=== PATIENT | female | born 1990 | race Two or more races ===

== ENCOUNTER 2016-08-20 15:14 | Emergency (ER) | payer MEDICAID ==
--- NOTE | 2016-08-20 15:26 | ER Document Report ---
ED Medical Screen (RME) - General Stated Complaint: BACK AND ABDOMINAL PAIN Time seen by provider: 15:23 Mode of Arrival: Ambulatory Information source: Patient Notes: 26 yo female presents to ed for left flank pain since Wednesday with nausea no vomiting. TRAVEL OUTSIDE OF THE [place] IN LAST 30 DAYS: No - HPI Onset: Other - Wednesday Onset/Duration: Intermittent Quality of pain: Sharp Pain Level: 3 Associated Symptoms: Abdominal pain - left flank pian, Nausea. denies: Vomiting Exacerbated by: Standing Similar symptoms previously: Yes Recently seen / treated by doctor: No - Related Data Smoking: Cigarettes - 2 cig a day Frequency of alcohol use: None Drug Abuse: None Allergies/Adverse Reactions: aspirin Allergy (Verified 05/21/16 14:11) Past Medical History - Past Medical History Cardiac Medical History: Reports: Hx Hypertension Psychiatric Medical History: Reports: Hx Attention Deficit Hyperactivity Disorder, Hx Depression Past Surgical History: Reports: Hx Section, Hx Tubal Ligation Physical Exam - Vital signs Vitals: Temp Pulse Resp BP Pulse Ox 97.8 F 86 20 143/89 H 100 08/20/16 15:19 08/20/16 15:19 08/20/16 15:19 08/20/16 15:19 08/20/16 15:19 Course - Vital Signs Vital signs: Temp Pulse Resp BP Pulse Ox 97.8 F 86 20 143/89 H 100 08/20/16 15:19 08/20/16 15:19 08/20/16 15:19 08/20/16 15:19 08/20/16 15:19
[2016-08-20] MEDS ORDERED: ONDANSETRON 4 MG TAB.RAPDIS ONE (15:29)
[2016-08-20] MEDS ORDERED: ONDANSETRON 4 MG TAB.RAPDIS PO ONE (15:34)
[2016-08-20 16:00] LABS: ABSOLUTE BASOPHILS # (AUTO) 0.1 10^3/uL (0.0-0.2); ABSOLUTE EOSINOPHILS # (AUTO) 0.5 10^3/uL (0.0-0.6); ABSOLUTE MONOCYTES (AUTO) 0.5 10^3/uL (0.1-1.4); ABSOLUTE NEUT (AUTO) 5.6 10^3/uL (1.7-8.2); BASOPHILS % (AUTO) 0.5 % (0-2); EOSINOPHILS % (AUTO) 4.8 % (0-6); HEMATOCRIT 33.5 % (36.0-47.0); HEMOGLOBIN 11.2 g/dL (12.0-15.5); HGB HCT DIFFERENCE 0.1; LYMPHOCYTES % (AUTO) 30.5 % (13-45); MEAN CORPUSCULAR HEMOGLOBIN 24.5 pg (27.0-33.4); MEAN CORPUSCULAR HGB CONC 33.4 g/dL (32.0-36.0); MEAN CORPUSCULAR VOLUME 73 fl (80-97); MONOCYTES % (AUTO) 5.6 % (3-13); RED BLOOD COUNT 4.58 10^6/uL (3.72-5.28); RED CELL DISTRIBUTION WIDTH 16.5 % (11.5-14.0); SEGMENTED NEUTROPHILS % (AUTO) 58.6 % (42-78); WHITE BLOOD COUNT 9.7 10^3/uL (4.0-10.5)
[2016-08-20 16:05] LABS: ALANINE AMINOTRANSFERASE 52 U/L (9-52); ALBUMIN 3.7 g/dL (3.5-5.0); ALKALINE PHOSPHATASE 69 U/L (38-126); ANION GAP 10 (5-19); ASPARTATE AMINO TRANSFERASE 32 U/L (14-36); BILIRUBIN,TOTAL 0.4 mg/dL (0.2-1.3); BLOOD UREA NITROGEN 13 mg/dL (7-20); CALCIUM 9.1 mg/dL (8.4-10.2); CARBON DIOXIDE 29 mmol/L (22-30); CHLORIDE 103 mmol/L (98-107); CREATININE RESULT 0.72 mg/dL (0.52-1.25); GLUCOSE 93 mg/dL (75-110); POTASSIUM 4.4 mmol/L (3.6-5.0); SODIUM 141.5 mmol/L (137-145); TOTAL PROTEIN 6.7 g/dL (6.3-8.2)
[2016-08-20 16:15] LABS: APPEARANCE,URINE SLIGHTLY-CLOUDY; BILIRUBIN,URINE NEGATIVE (NEGATIVE); GLUCOSE, URINE NEGATIVE (NEGATIVE); KETONES,URINE NEGATIVE (NEGATIVE); LEUKOCYTE ESTERASE,URINE NEGATIVE (NEGATIVE); NITRITE,URINE NEGATIVE (NEGATIVE); PROTEIN,URINE NEGATIVE (NEGATIVE); URINE SPECIFIC GRAVITY 1.021; UROBILINOGEN,URINE NEGATIVE mg/dL (<2.0)
[2016-08-20] MEDS ORDERED: OXYCODONE-ACETAMINOPHEN 5-325 MG TABLET PO ONE (16:43)
--- NOTE | 2016-08-20 16:44 | ER Document Report ---
ED GI/ - General Chief Complaint: Abdominal Pain Stated Complaint: BACK AND ABDOMINAL PAIN Mode of Arrival: Ambulatory Information source: Patient Notes: Patient reports left-sided abdominal pain that wraps around to the left flank area off and on for the past 4 days. Patient reports some nausea. Patient denies any vomiting or diarrhea. Patient denies any urinary symptoms. Patient reports last bowel movement may have been today but she is uncertain. Eyes any aggravating or alleviating factors. Patient denies any fever. TRAVEL OUTSIDE OF THE [place] IN LAST 30 DAYS: No - HPI Patient complains to provider of: Abdominal pain, Flank pain. No: Dysuria, Pelvic pain, Onset: Other - 4 days Timing/Duration: Waxing and waning Quality of pain: Achy Pain Level: 3 Location: Left flank, Other - Left lateral side Adult Front & Back Diagram: 1 - Left middle quadrant tenderness Vaginal bleeding (Compared to normal period): None - Related Data Allergies/Adverse Reactions: aspirin Allergy (Verified 05/21/16 14:11) Past Medical History - General Information source: Patient Last Menstrual Period: 08/04/2016 - Social History Smoking Status: Current Every Day Smoker Frequency of alcohol use: None Drug Abuse: None Occupation: none Lives with: Family Family History: Reviewed & Not Pertinent Patient has suicidal ideation: No Patient has homicidal ideation: No - Past Medical History Cardiac Medical History: Reports: Hx Hypertension Psychiatric Medical History: Reports: Hx Attention Deficit Hyperactivity Disorder, Hx Depression Past Surgical History: Reports: Hx Section, Hx Tubal Ligation Review of Systems - Review of Systems Constitutional: No symptoms reported. denies: Fever, Recent illness EENT: No symptoms reported Cardiovascular: No symptoms reported. denies: Chest pain Respiratory: No symptoms reported. denies: Cough, Short of breath Gastrointestinal: Abdominal pain. denies: Diarrhea, Nausea, Vomiting Genitourinary: Flank pain. denies: Dysuria Female Genitourinary: No symptoms reported Musculoskeletal: Back pain - Left-sided Skin: No symptoms reported Hematologic/Lymphatic: No symptoms reported Neurological/Psychological: No symptoms reported Physical Exam - Vital signs Vitals: Temp Pulse Resp BP Pulse Ox 97.8 F 86 20 143/89 H 100 08/20/16 15:19 08/20/16 15:19 08/20/16 15:19 08/20/16 15:19 08/20/16 15:19 - General General appearance: Appears well, Alert In distress: None Notes: PHYSICAL EXAMINATION: GENERAL: Morbidly obese, Well-appearing and in no acute distress. HEAD: Atraumatic, normocephalic. EYES: sclera anicteric, conjunctiva are normal. ENT: nares patent. Moist mucous membranes. NECK: Normal range of motion, supple without lymphadenopathy LUNGS: CTAB and equal. No wheezes rales or rhonchi. HEART: Regular rate and rhythm without murmurs ABDOMEN: Soft, mild tenderness to left lateral abdominal area, normal bowel sounds, no guarding. EXTREMITIES: Normal range of motion, no pitting edema. No cyanosis. BACK: No midline tenderness, no step-off or deformity. No CVA tenderness NEUROLOGICAL: Cranial nerves grossly intact. Normal speech. Normal gait. PSYCH: Normal mood, normal affect. SKIN: Warm, Dry, normal turgor, no rashes or lesions noted Course - Re-evaluation Re-evalutation: 08/20/16 18:08 Patient's abdomen soft, nontender this time. Patient denies any nausea. Discussed worsening signs or symptoms that patient should return immediately for. Patient verbalized understanding and agrees with plan of care. Patient presents with abdominal pain without signs of peritonitis or other life- threatening or serious etiology. Patient appears stable for discharge and has been instructed to return immediately if the symptoms worsen in any way, or in 8 -12 hours if not improved for reevaluation. The patient has been instructed to return if the symptoms worsen or change in any way. - Vital Signs Vital signs: Temp Pulse Resp BP Pulse Ox 97.8 F 81 20 130/84 H 99 08/20/16 18:27 08/20/16 18:27 08/20/16 18:27 08/20/16 18:27 08/20/16 18:27 - Laboratory Result Diagrams: 08/20/16 15:30 08/20/16 15:30 Laboratory results interpreted by me: 08/20/16 08/20/16 15:30 15:30 Hgb 11.2 L Hct 33.5 L MCV 73 L MCH 24.5 L RDW 16.5 H Urine Ascorbic Acid 20 H 08/20/16 18:07 Labs- Entire Visit 08/20/16 08/20/16 08/20/16 15:30 15:30 15:30 WBC 9.7 RBC 4.58 Hgb 11.2 L Hct 33.5 L MCV 73 L MCH 24.5 L MCHC 33.4 RDW 16.5 H Plt Count 380 Seg Neutrophils % 58.6 Lymphocytes % 30.5 Monocytes % 5.6 Eosinophils % 4.8 Basophils % 0.5 Absolute Neutrophils 5.6 Absolute Lymphocytes 3.0 Absolute Monocytes 0.5 Absolute Eosinophils 0.5 Absolute Basophils 0.1 Sodium 141.5 Potassium 4.4 Chloride 103 Carbon Dioxide 29 Anion Gap 10 BUN 13 Creatinine 0.72 Est GFR ( Amer) > 60 Est GFR (Non-Af Amer) > 60 Glucose 93 Calcium 9.1 Total Bilirubin 0.4 Direct Bilirubin 0.0 AST 32 ALT 52 Alkaline Phosphatase 69 Total Protein 6.7 Albumin 3.7 Serum HCG, Qual NEGATIVE Urine Color Urine Appearance Urine pH Ur Specific [place] Urine Protein Urine Glucose (UA) Urine Ketones Urine Blood Urine Nitrite Urine Bilirubin Urine Urobilinogen Ur Leukocyte Esterase Urine WBC (Auto) Urine RBC (Auto) Squamous Epi Cells Auto Urine Mucus (Auto) Urine Ascorbic Acid 08/20/16 15:30 WBC RBC Hgb Hct MCV MCH MCHC RDW Plt Count Seg Neutrophils % Lymphocytes % Monocytes % Eosinophils % Basophils % Absolute Neutrophils Absolute Lymphocytes Absolute Monocytes Absolute Eosinophils Absolute Basophils Sodium Potassium Chloride Carbon Dioxide Anion Gap BUN Creatinine Est GFR ( Amer) Est GFR (Non-Af Amer) Glucose Calcium Total Bilirubin Direct Bilirubin AST ALT Alkaline Phosphatase Total Protein Albumin Serum HCG, Qual Urine Color YELLOW Urine Appearance SLIGHTLY-CLOUDY Urine pH 7.0 Ur Specific [place] 1.021 Urine Protein NEGATIVE Urine Glucose (UA) NEGATIVE Urine Ketones NEGATIVE Urine Blood NEGATIVE Urine Nitrite NEGATIVE Urine Bilirubin NEGATIVE Urine Urobilinogen NEGATIVE Ur Leukocyte Esterase NEGATIVE Urine WBC (Auto) 5 Urine RBC (Auto) 1 Squamous Epi Cells Auto 18 Urine Mucus (Auto) RARE Urine Ascorbic Acid 20 H 08/20/16 18:08 - Diagnostic Test Radiology reviewed: Image reviewed, Reports reviewed Discharge - Discharge Clinical Impression: Side pain Abdominal pain Qualifiers: Abdominal location: unspecified location Qualified Code(s): R10.9 - Unspecified abdominal pain Condition: Stable Disposition: HOME, SELF-CARE Instructions: Abdominal Pain ([facility]), Constipation ([facility]), Flank Pain ([facility]) Additional Instructions: Return immediately for any new or worsening symptoms Followup with your primary care provider, call tomorrow to make a followup appointment Return in 12 hours for repeat examination if your symptoms are not any better, sooner for any new or worsening symptoms Stay well hydrated Referrals: [facility] [Provider Group] - Follow up as needed [facility] [Provider Group] - Follow up as needed
[2016-08-20] MEDS ORDERED: MAGNESIUM CITRATE 296 ML BOTTLE PO ONE (18:07)
[2016-08-20 18:28] VITALS: BP 130/84
== END 2016-08-20 18:28 | disposition home or self-care (01) ==
LOC: ER 15:14
DX: R10.9 Unspecified abdominal pain (principal); M54.9 Dorsalgia, unspecified
CPT/HCPCS: 99284; 36415; 84703; 85025; 80053; 81001; 74022; J3490; S0119

== ENCOUNTER 2016-10-13 09:46 | Emergency (ER) | payer MEDICAID ==
[2016-10-13 12:54] LABS: APPEARANCE,URINE CLEAR; BILIRUBIN,URINE NEGATIVE (NEGATIVE); GLUCOSE, URINE NEGATIVE (NEGATIVE); KETONES,URINE NEGATIVE (NEGATIVE); LEUKOCYTE ESTERASE,URINE NEGATIVE (NEGATIVE); NITRITE,URINE NEGATIVE (NEGATIVE); PROTEIN,URINE NEGATIVE (NEGATIVE); URINE SPECIFIC GRAVITY 1.009; UROBILINOGEN,URINE NEGATIVE mg/dL (<2.0)
--- NOTE | 2016-10-13 13:14 | ER Document Report ---
ED GI/ - General Chief Complaint: Pelvic Pain Stated Complaint: EYE PAIN Notes: Patient says that she awakened Wednesday with red right thigh. Does not have any recollection of injury or trauma to the eye, rubbing the eye real vigorously, etc. It has been uncomfortable, but has not been painful and has not drained, bled, or had any other symptoms. Her vision is normal in both eyes. Patient also says that she's having pelvic pain for about 2 months. The pain is intermittent and in the mid lower pelvic region. She's not had any nausea or vomiting or diarrhea. Has had some urinary frequency but no other UTI symptoms. Was seen for this condition by a local [employer] office and had tests that came back positive for chlamydia and the patient was treated with an antibiotic. Her symptoms have not resolved and she is still having this pelvic pain and wishes to be checked out further today. Denies fever. She has an appointment to see the [employer] doctor again in 2 weeks. Patient has had a tubal ligation about 3 years ago. LMP 2/6. TRAVEL OUTSIDE OF THE [place] IN LAST 30 DAYS: No - Related Data Allergies/Adverse Reactions: aspirin Allergy (Verified 10/13/16 09:52) Past Medical History - Social History Smoking Status: Current Every Day Smoker Cigarette use (# per day): Yes Chew tobacco use (# tins/day): No Frequency of alcohol use: None Drug Abuse: None Family History: Reviewed & Not Pertinent Patient has suicidal ideation: No Patient has homicidal ideation: No - Past Medical History Cardiac Medical History: Reports: Hx Hypertension Renal/ Medical History: Denies: Hx Peritoneal Dialysis Psychiatric Medical History: Reports: Hx Attention Deficit Hyperactivity Disorder, Hx Depression Past Surgical History: Reports: Hx Section, Hx Tubal Ligation Review of Systems - Review of Systems Notes: REVIEW OF SYSTEMS: CONSTITUTIONAL : Denies fever. EENT: Denies eye, ear, nose or mouth or throat pain or other symptoms. CARDIOVASCULAR: Denies chest pain. RESPIRATORY: Denies cough, chest congestion, or shortness of breath. GASTROINTESTINAL: Denies abdominal pain or nausea, vomiting, or diarrhea. GENITOURINARY: Denies difficulty or painful urinating, urinary frequency, blood in urine. See history of present illness regarding her suprapubic/pelvic pain. MUSCULOSKELETAL: Denies back or neck pain. Denies joint pain or swelling. SKIN: Denies rash or skin lesions. ALL OTHER SYSTEMS REVIEWED AND NEGATIVE. Physical Exam - Vital signs Vitals: Temp Pulse Resp BP Pulse Ox 98.2 F 77 16 151/88 H 98 10/13/16 09:52 10/13/16 09:52 10/13/16 09:52 10/13/16 09:52 10/13/16 09:52 Interpretation: Normal, Hypertensive - Mild - Notes Notes: PHYSICAL EXAMINATION: GENERAL: Well-appearing, in no acute distress. 156 kg HEAD: Atraumatic, normocephalic. EYES: Pupils equal round and reactive to light, extraocular movements intact. Right eye shows what appears to me to be some subconjunctival hemorrhage of the inferior, medial aspect of the right eye conjunctiva NECK: Normal range of motion, supple. LUNGS: Breath sounds clear and equal bilaterally. HEART: Regular rate and rhythm without murmurs. ABDOMEN: Soft, nontender. No guarding or rebound. BACK: No tenderness throughout entire back. EXTREMITIES: Normal range of motion without pain. SKIN: Warm, dry, no rashes. - Genitourinary External exam: Normal Speculum exam: Normal, Cervix closed. No: Vaginal discharge Vaginal bleeding: None Bimanuel exam: Normal, Other - Mild tenderness in the midline, but no masses and no acute tenderness anywhere.. No: Adnexal mass, Adnexal tenderness, Uterus enlarged Course - Vital Signs Vital signs: Temp Pulse Resp BP Pulse Ox 98.2 F 77 16 151/88 H 98 10/13/16 09:52 10/13/16 09:52 10/13/16 09:52 10/13/16 09:52 10/13/16 09:52 Discharge - Discharge Clinical Impression: Subconjunctival hemorrhage of right eye, Chronic female pelvic pain Condition: Stable Disposition: HOME, SELF-CARE Additional Instructions: Subconjunctival Hemorrhage You've had an episode of bleeding between the sclera (white of the eye) and the membrane which covers it. While ugly, this bleeding is not dangerous in any way. Your eye has been examined to ensure that no internal hemorrhage is present. While subconjunctival hemorrhage can be caused by a minor injury, it is usually due to coughing, sneezing, straining, or rubbing the eye. There is no specific treatment. Expect the red area to spread considerably. Avoid rubbing the eye. It may take two or three weeks for the blood to clear. If you have any pain, discharge from the eye, or problems with your vision , call the doctor or return immediately for re-evaluation. PELVIC PAIN: There are many causes of pain in the pelvic area. The cause could be the tubes, ovaries, uterus, intestines, appendix, pelvic muscles and connective tissue, or the urinary tract. The cause of your pelvic pain is not clear. However, it seems safe to treat you outside the hospital. If the pain sounds like a temporary problem, we sometimes wait to see if it goes away. Other patients may need additional tests, such as pelvic ultrasound or cultures. Conditions may change. Call us or come back for reexamination if any problems occur, such as: (1) Pain that becomes more severe, steady, or becomes concentrated in one specific area. Also, pain that is more severe with movement or coughing. (2) Vomiting that persists or becomes more frequent. (3) Blood in the vomitus, urine, or bowel movements. Blood in the stool may have a tarry or black appearance. (4) Shaking chills or fever greater than 100 degrees. (5) The abdomen becomes more distended or swollen. (6) Bowel movements cease. (7) Heavy vaginal bleeding. NORMAL EXAM AND WORKUP: At this time, your examination and workup show no significant abnormality. No significant abnormal physical findings were noted. All laboratory, EKG, and imaging (x-ray, CT scans, ultrasound) studies that were ordered show no significant abnormality. Although your examination and all studies that were ordered showed no significant abnormal finding, there are no examinations and no studies that are 100% accurate. There is always the possibility that some abnormality could exist and not be detected with physical examination or within the limits and capabilities of laboratory and other studies. You should return or follow up as you were instructed on your visit today for further evaluation if your symptoms do not resolve. All of your tests of the pelvic area were normal/negative. We tested for trichomonas, yeast, chlamydia, and gonorrhea and all of those tests are normal. Ibuprofen Ibuprofen is an excellent, safe drug for pain control. In addition, it has potent antiinflammatory effects which are beneficial, especially in the treatment of injuries, arthritis, or tendonitis. It's best to take ibuprofen with food. Persons with ulcer disease or allergy to aspirin should notify their physician of this before taking ibuprofen. Take the medication exactly as prescribed. Don't take additional doses unless instructed to do so by your doctor. If you develop wheezing, shortness of breath, hives, faintness, stomach pain, vomiting, or dark black stools, return for re-evaluation at once. FOLLOW-UP CARE: If you have been referred to a physician for follow-up care, call the physician s office for an appointment as you were instructed or within the next two days. If you experience worsening or a significant change in your symptoms, notify the physician immediately or return to the Emergency Department at any time for re-evaluation. Keep your appointment to follow-up with your local [employer] doctor in 2 weeks, as scheduled.
[2016-10-13 13:31] LABS: CHLAM PCR NOT DETECTED (NOT DETECT)
[2016-10-13 14:07] VITALS: BP 152/88
== END 2016-10-13 14:06 | disposition home or self-care (01) ==
LOC: ER 09:46
DX: R10.2 Pelvic and perineal pain (principal); G89.29 Other chronic pain; H11.31 Conjunctival hemorrhage, right eye; R35.0 Frequency of micturition; F17.210 Nicotine dependence, cigarettes, uncomplicated; Z98.51 Tubal ligation status; Z88.6 Allergy status to analgesic agent; I10 Essential (primary) hypertension
CPT/HCPCS: 81001; 87210; 87491; 87591; 99284

== ENCOUNTER 2018-01-09 04:36 | Emergency (ER) | payer MEDICAID ==
[2018-01-09 06:00] LABS: APPEARANCE,URINE CLEAR; BILIRUBIN,URINE NEGATIVE (NEGATIVE); COLOR,URINE STRAW; GLUCOSE, URINE NEGATIVE (NEGATIVE); KETONES,URINE NEGATIVE (NEGATIVE); LEUKOCYTE ESTERASE,URINE NEGATIVE (NEGATIVE); NITRITE,URINE NEGATIVE (NEGATIVE); PROTEIN,URINE NEGATIVE (NEGATIVE); URINE SPECIFIC GRAVITY 1.004; UROBILINOGEN,URINE NEGATIVE mg/dL (<2.0)
[2018-01-09 06:14] LABS: ABSOLUTE BASOPHILS # (AUTO) 0.1 10^3/uL (0.0-0.2); ABSOLUTE EOSINOPHILS # (AUTO) 0.8 10^3/uL (0.0-0.6); ABSOLUTE MONOCYTES (AUTO) 0.6 10^3/uL (0.1-1.4); ABSOLUTE NEUT (AUTO) 6.2 10^3/uL (1.7-8.2); BASOPHILS % (AUTO) 0.7 % (0-2); EOSINOPHILS % (AUTO) 7.9 % (0-6); HEMATOCRIT 34.6 % (36.0-47.0); HEMOGLOBIN 11.7 g/dL (12.0-15.5); LYMPHOCYTES % (AUTO) 28.1 % (13-45); MEAN CORPUSCULAR HEMOGLOBIN 25.6 pg (27.0-33.4); MEAN CORPUSCULAR HGB CONC 33.8 g/dL (32.0-36.0); MEAN CORPUSCULAR VOLUME 76 fl (80-97); MONOCYTES % (AUTO) 5.3 % (3-13); PLATELET COUNT 369 10^3/uL (150-450); RED BLOOD COUNT 4.57 10^6/uL (3.72-5.28); RED CELL DISTRIBUTION WIDTH 16.4 % (11.5-14.0); TOTAL CELLS COUNTED % (AUTO) 100 %; WHITE BLOOD COUNT 10.6 10^3/uL (4.0-10.5)
--- NOTE | 2018-01-09 06:26 | ER Document Report ---
ED General - General TRAVEL OUTSIDE OF THE [place] IN LAST 30 DAYS: No <ZAYRA ROBERTS - Last Filed: 01/09/18 06:21> <MARISABEL LEVIN - Last Filed: 01/09/18 10:17> <ALEJANDRA LEBLANC - Last Filed: 01/09/18 10:33> - General Chief Complaint: Overdose Stated Complaint: POSSIBLE OVERDOSE Time Seen by Provider: 01/09/18 04:44 Notes: Patient is a 27-year-old female presents with complaint of an overdose on Ambien. She took 29 Ambien tablets. When asked why she did this she says "I just wanted to sleep". I informed her that most people do not take 29 tablets just to sleep. She does admit to depression. She will not tell me why she is depressed. She states she has never done this before. She has no other complaints at this time. She denies take any other medications. She took the Ambien approximately 1 hour prior to arrival. Denies any nausea. No vomiting. (ZAYRA ROBERTS) - Related Data Allergies/Adverse Reactions: aspirin Allergy (Verified 01/09/18 05:18) Past Medical History - Social History Smoking Status: Current Some Day Smoker Chew tobacco use (# tins/day): No Frequency of alcohol use: Social Drug Abuse: None Family History: Reviewed & Not Pertinent Patient has suicidal ideation: Yes Patient has homicidal ideation: No - Past Medical History Cardiac Medical History: Reports: Hx Hypertension Renal/ Medical History: Denies: Hx Peritoneal Dialysis Psychiatric Medical History: Reports: Hx Attention Deficit Hyperactivity Disorder, Hx Depression Past Surgical History: Reports: Hx Section, Hx Tubal Ligation <ZAYRA ROBERTS - Last Filed: 01/09/18 06:21> Review of Systems <ZAYRA ROBERTS - Last Filed: 01/09/18 06:21> <MARISABEL LEVIN - Last Filed: 01/09/18 10:17> <ALEJANDRA LEBLANC - Last Filed: 01/09/18 10:33> - Review of Systems Notes: My Normal Review Basic REVIEW OF SYSTEMS: CONSTITUTIONAL : Denies fever, chills, or sweats. Denies recent illness. EENT: Denies eye, ear, throat, or mouth pain or symptoms. Denies nasal or sinus congestion. CARDIOVASCULAR: Denies chest pain. RESPIRATORY: Denies cough, cold, or chest congestion. Denies shortness of breath, difficulty breathing, or wheezing. GASTROINTESTINAL: Denies abdominal pain. Denies nausea, vomiting, or diarrhea. Denies constipation. Last BM: GENITOURINARY: Denies difficulty urinating, painful urination, burning, frequency, or blood in urine. MUSCULOSKELETAL: Denies neck or back pain or joint pain or swelling. SKIN: Denies rash or skin lesions. NEUROLOGICAL: Denies altered mental status or loss of consciousness. Denies headache. Denies weakness or paralysis or loss of use of either side. Denies problems with gait or speech. Denies sensory or motor loss. PSYCHIATRIC: Depression. ALL OTHER SYSTEMS REVIEWED AND NEGATIVE. (ZAYRA ROBERTS) Physical Exam <ZAYRA ROBERTS - Last Filed: 01/09/18 06:21> <MARISABEL LEVIN - Last Filed: 01/09/18 10:17> <ALEJANDRA LEBLANC - Last Filed: 01/09/18 10:33> - Vital signs Vitals: Temp 98.5 F 01/09/18 04:50 - Notes Notes: General Appearance: Well nourished, alert, cooperative, no acute distress, no obvious discomfort. Vitals: reviewed, See vital signs table. Head: no swelling or tenderness to the head Eyes: PERRL, EOMI, Conjuctiva clear Mouth: No decreasd moisture Lungs: No wheezing, No rales, No rhonci, No accessory muscle use, good air exchange bilaterally. Heart: Normal rate, Regular rythm, No murmur, no rub Abdomen: Normal BS, soft, No rigidity, No abdominal tenderness, No guarding, no rebound, no abdominal masses, no organomegaly Extremities: strength 5/5 in all extremities, good pulses in all extremities, no swelling or tenderness in the extremities, no edema. Skin: warm, dry, appropriate color, no rash Neuro: speech clear, oriented x 3, normal affect, responds appropriately to questions. Cranial nerves II through XII are intact. Distal sensation intact. Patient was all extremities without difficulty. (ZAYRA ROBERTS) Course - Laboratory Result Diagrams: 01/09/18 06:00 01/09/18 06:00 <ZAYRA ROBERTS - Last Filed: 01/09/18 06:21> - Laboratory Result Diagrams: 01/09/18 06:00 01/09/18 06:00 <MARISABEL LEVIN - Last Filed: 01/09/18 10:17> - Laboratory Result Diagrams: 01/09/18 06:00 01/09/18 06:00 <ALEJANDRA LEBLANC - Last Filed: 01/09/18 10:33> - Re-evaluation Re-evalutation: 01/09/18 06:25 Patient will be monitored for at least 6 hours before cleared for psychiatric evaluation being that she did overdose multiple Ambien tablets. If after 6 hours she is fully awake and alert and show no evidence of being excessively somnolent and is not hypoxic and she will be cleared for psychiatric evaluation. I have placed her on IVC papers patient denies being suicidal however she admits to being depressed and intentionally took 29 Ambien tablets. This suggests to me that the patient was intentionally trying to hurt herself and is a danger to herself. Dictation of this chart was performed using voice recognition software; therefore, there may be some unintended grammatical errors. (ZAYRA ROBERTS) - Vital Signs Vital signs: Temp Pulse Resp BP Pulse Ox 98 F 19 143/85 H 95 01/09/18 09:38 01/09/18 10:00 01/09/18 09:10 01/09/18 10:00 - Laboratory Laboratory results interpreted by me: 01/09/18 01/09/18 06:00 06:00 WBC 10.6 H Hgb 11.7 L Hct 34.6 L MCV 76 L MCH 25.6 L RDW 16.4 H Eosinophils % 7.9 H Absolute Eosinophils 0.8 H Chloride 108 H Glucose 111 H Total Bilirubin 0.1 L Salicylates < 1.0 L Acetaminophen < 10 L - EKG Interpretation by Me Additional EKG results interpreted by me: 01/09/18 06:21 EKG is reviewed and interpreted by me. EKG shows normal sinus rhythm with rate of [address] segment elevation or depression. No ischemic T-wave inversions. ME interval, QRS duration, QTc intervals are within normal range. No old EKG available for comparison. (ZAYRA ROBERTS) Discharge <ZAYRA ROBERTS - Last Filed: 01/09/18 06:21> <MARISABEL LEVIN - Last Filed: 01/09/18 10:17> <ALEJANDRA LEBLANC - Last Filed: 01/09/18 10:33> - Discharge Clinical Impression: Depression Qualifiers: Depression Type: unspecified Qualified Code(s): F32.9 - Major depressive disorder, single episode, unspecified Overdose Qualifiers: Encounter type: initial encounter Injury intent: intentional self-harm Qualified Code(s): T50.902A - Poisoning by unspecified drugs, medicaments and biological substances, intentional self-harm, initial encounter Condition: Stable Disposition: HOME, SELF-CARE Additional Instructions: OVERDOSE: You have taken more medication than you should have. After your evaluation and care, it is felt that your overdose is not likely to be harmful or of any significant consequences to you and you are being discharged. In the future, you should be careful not to take more medications than what is prescribed for you. Although your overdose does not seem to be of any danger to you at this time, if you develop any unusual or unexpected symptoms after your discharge, you should return to the Emergency Department immediately for re-evaluation. DEPRESSION: Your evaluation reveals that you have mental depression. While symptoms may be vague, they often include disturbance of sleep, fatigue, loss of appetite , and general loss of interest in life. While depression may be a side effect of drugs, or a reaction to a major change in your life, many cases have no known cause. If depression is acute, and related to a major loss in your life, you can expect it to clear completely with time. If you have been depressed a long time , are prone to repeated bouts of depression or low mood, or have been thinking of suicide, get help. Depression can be treated with anti-depressant medication and counselling. Long-term depression will often take a few weeks to clear, even with appropriate medication. Follow-up care is important. SUICIDAL IDEATION: Suicidal ideation is a common medical term for thoughts about suicide, which may be as detailed as a formulated plan, without the suicidal act itself. Although most people who undergo suicidal ideation do not commit suicide, some go on to make suicide attempts. The range of suicidal ideation varies greatly from fleeting to detailed planning, role playing, and unsuccessful attempts. While thoughts about suicide are common, most people do not carry out serious actions to commit suicide. Based upon your evaluation and discussion with you, we do not believe you are currently at risk to act upon your thoughts of suicide. You have agreed to return to the Emergency Department, at any time , if you feel inclined to act upon your suicidal thoughts. FOLLOW-UP CARE: You should follow up with your outpatient provider at [facility] ([facility]) fist thing Wednesday (01/11/2018) as a walk-in. Your medications have been adjusted. You will stop taking your home medications of Ambien and Celexa. You will only take the prescribed Depakote until you see your provider. If you experience worsening or a significant change in your symptoms, notify the physician immediately or return to the Emergency Department at any time for re-evaluation. Prescriptions: Divalproex Sodium [Depakote ER 500 mg Tab.sr] 500 mg PO Q12 #30 tab.sr.24h Referrals: [facility] [Outside] - 01/11/18
[2018-01-09 06:33] LABS: URINE AMPHETAMINES SCREEN NEGATIVE; URINE BARBITURATES SCREEN NEGATIVE; URINE BENZODIAZEPINES SCREEN NEGATIVE; URINE COCAINE SCREEN NEGATIVE; URINE MARIJUANA (THC) SCREEN NEGATIVE; URINE METHADONE SCREEN NEGATIVE; URINE PHENCYCLIDINE SCREEN NEGATIVE
[2018-01-09 07:06] LABS: ALANINE AMINOTRANSFERASE 28 U/L (9-52); ALBUMIN 3.8 g/dL (3.5-5.0); ALCOHOL 47 mg/dL (NONE DETECTED); ALKALINE PHOSPHATASE 65 U/L (38-126); ANION GAP 15 (5-19); ASPARTATE AMINO TRANSFERASE 22 U/L (14-36); BILIRUBIN,DIRECT 0.1 mg/dL (0.0-0.4); BILIRUBIN,TOTAL 0.1 mg/dL (0.2-1.3); BLOOD UREA NITROGEN 10 mg/dL (7-20); CALCIUM 9.2 mg/dL (8.4-10.2); CARBON DIOXIDE 22 mmol/L (22-30); CHLORIDE 108 mmol/L (98-107); GLUCOSE 111 mg/dL (75-110); POTASSIUM 3.8 mmol/L (3.6-5.0); TOTAL PROTEIN 6.7 g/dL (6.3-8.2)
[2018-01-09 07:15] LABS: ACETAMINOPHEN < 10 ug/mL (10-30); SALICYLATE < 1.0 mg/dL (2.0-20.0)
--- NOTE | 2018-01-09 08:46 | EKG REPORT ---
SEVERITY:- NORMAL ECG - SINUS RHYTHM : Confirmed by: Triston Vilchis MD 09-Jan-2018 08:45:32
--- NOTE | 2018-01-09 10:03 | ER Document Report ---
Doctor's Note Notes: 01/09/18 10:02 This is a follow-up evaluation: Primary diagnosis-major depressive disorder Patient is here for the above reason, has been doing well, currently has -no complain- On examination-vitals reviewed in the chart. General exam: Alert oriented 3 not in any acute distress, morbidly obese HEENT: Normocephalic atraumatic pupils are equal reactive to light, Lungs-clear breath sounds no rales or wheezing. Cardiovascular system: Normal S1-S2 no murmurs. Gastrointestinal: Normal breath sounds, no organomegaly positive bowel sounds. Genitourinary: Skin: No lesions noted, no rash Psychiatric: Depression Diagnoses: Major depressive disorder Plan: Mental health evaluation
[2018-01-09 12:47] VITALS: BP 158/95
--- NOTE | 2018-01-09 14:44 | EKG REPORT ---
SEVERITY:- NORMAL ECG - SINUS RHYTHM : Confirmed by: Triston Vilchis MD 09-Jan-2018 14:43:44
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
== END 2018-01-09 12:47 | disposition home or self-care (01) ==
LOC: ER 04:36
DX: T42.6X2A Poisoning by other antiepileptic and sedative-hypnotic drugs, intentional self-harm, initial encounter (principal); X58.XXXA Exposure to other specified factors, initial encounter; F17.200 Nicotine dependence, unspecified, uncomplicated; F32.9 Major depressive disorder, single episode, unspecified; I10 Essential (primary) hypertension; F43.10 Post-traumatic stress disorder, unspecified; F31.9 Bipolar disorder, unspecified; Z98.51 Tubal ligation status
CPT/HCPCS: 36415; 80053; 80307; 81001; 84703; 85025; 93005; 93010; 99285

== ENCOUNTER 2018-04-15 23:29 | Emergency (ER) | payer MEDICAID ==
[2018-04-16] MEDS ORDERED: LORAZEPAM 1 MG TABLET PO ONE (00:46)
--- NOTE | 2018-04-16 00:50 | ER Document Report ---
ED General - General Chief Complaint: Anxiety Stated Complaint: CHEST PAIN Time Seen by Provider: 04/16/18 00:37 Mode of Arrival: Ambulatory Information source: Patient Notes: Patient is a 27-year-old female who presents with chief complaint of chest pain. Patient reports that the chest pain started a couple of hours prior to arrival, she reports she has a history of anxiety and had a stressful situation in which she became very emotional. Patient reports that she takes Buspar prescribed by [facility]. Patient describes the pain as substernal chest pain that is reproducible with palpation. Patient denies any nausea, vomiting, shortness of breath or any other associated symptoms. TRAVEL OUTSIDE OF THE [place] IN LAST 30 DAYS: No - Related Data Allergies/Adverse Reactions: aspirin Allergy (Verified 04/16/18 01:04) Past Medical History - General Information source: Patient - Social History Smoking Status: Never Smoker Frequency of alcohol use: None Drug Abuse: None Family History: Reviewed & Not Pertinent - Past Medical History Cardiac Medical History: Reports: Hx Hypertension Renal/ Medical History: Denies: Hx Peritoneal Dialysis Psychiatric Medical History: Reports: Hx Attention Deficit Hyperactivity Disorder, Hx Depression Past Surgical History: Reports: Hx Section, Hx Tubal Ligation - Immunizations Immunizations up to date: Yes Review of Systems - Review of Systems Cardiovascular: Chest pain Neurological/Psychological: Anxiety -: Yes All other systems reviewed and negative Physical Exam - Vital signs Vitals: Temp Pulse Resp BP Pulse Ox 98.1 F 79 20 157/82 H 99 04/15/18 23:40 04/15/18 23:40 04/15/18 23:40 04/15/18 23:40 04/15/18 23:40 - Notes Notes: PHYSICAL EXAMINATION: GENERAL: Well-appearing, well-nourished and in no acute distress. HEAD: Atraumatic, normocephalic. EYES: Pupils equal round and reactive to light, extraocular movements intact, conjunctiva are normal. ENT: Nares patent, oropharynx clear without exudates. Moist mucous membranes. NECK: Normal range of motion, supple without lymphadenopathy LUNGS: Breath sounds clear to auscultation bilaterally and equal. No wheezes rales or rhonchi. HEART: Regular rate and rhythm without murmurs ABDOMEN: Soft, nontender, nondistended abdomen. No guarding, no rebound. No masses appreciated. Female : deferred Musculoskeletal: Normal range of motion, no pitting or edema. No cyanosis. Reproducible chest pain with palpation to left chest wall. NEUROLOGICAL: Cranial nerves grossly intact. Normal speech, normal gait. Normal sensory, motor exams PSYCH: Normal mood, normal affect. SKIN: Warm, Dry, normal turgor, no rashes or lesions noted. Course - Re-evaluation Re-evalutation: Patient with reproducible chest pain after argument with a family member. Chest x-ray was negative for any acute findings. EKG is a sinus rhythm, rate 72 , normal axis, no ST segment elevations or depressions to suggest ischemia. Patient reports relief of her symptoms after administration of 1 mg p.o. Ativan. Patient will be discharged home with instructions to follow-up with her psychiatric provider for possible adjustment of her anxiety medications. - Vital Signs Vital signs: Temp Pulse Resp BP Pulse Ox 97.4 F 73 18 138/75 H 99 04/16/18 02:00 04/16/18 02:00 04/16/18 02:00 04/16/18 02:00 04/16/18 02:00 Discharge - Discharge Clinical Impression: Anxiety Chest pain Qualifiers: Chest pain type: unspecified Qualified Code(s): R07.9 - Chest pain, unspecified Condition: Stable Disposition: HOME, SELF-CARE Instructions: Anxiety ([facility]) Additional Instructions: Anxiety The physician feels that some of your health problems are being caused by anxiety. Anxiety affects your health in many ways. Anxiety alone can cause palpitations, sweats, chest pains, abdominal pains, shortness of breath, and headaches. It contributes to ulcer disease, high blood pressure, irritable bowel syndrome, and has been shown to cause flare-ups of many other diseases. Anxiety is not a simple disorder to treat. If the anxiety is due to recent life stresses, you may simply need time to "work through" the changes. If the anxiety is due to an underlying unhappiness with yourself or due to psychiatric disturbance, professional help will be needed. Your physician can refer you for further help if needed. Anti-anxiety medication is occasionally given if the stress is acute or if you are having trouble sleeping. Chronic or frequent use of these medications is not a good idea because the body becomes reliant on it, preventing you from dealing with life's normal stresses. Chest Wall Pain Your chest pain has been diagnosed as coming from the chest wall. This is often caused by straining the muscles or joints in the chest during physical activity, direct trauma, coughing, or vigorous vomiting. Persons with arthritis are especially prone to this type of pain, due to inflammation of the cartilage joints near the breast bone. Occasionally, no cause can be found. Rest from strenuous physical activity. This kind of chest pain is usually made worse by movement of the chest. Depending on the symptoms, we may prescribe medicine for pain, muscle relaxation, and antiinflammatory effects. If the pain is new, and seems to be due to muscle strain, cold packs can help. Otherwise, apply gentle warmth to the painful area for 15 minutes every hour or two. You should contact the doctor immediately if things change. Further evaluation is needed if you develop a fever or cough, if the nature of the pain changes, or if you become short of breath. Referrals: JEFFREY ALLEN MD [Primary Care Provider] - Follow up as needed AILIN MONROE NP [NO LOCAL MD] - Follow up as needed
--- NOTE | 2018-04-16 01:17 | RADIOLOGY REPORT (SQ) ---
CXR- 2 VIEW Clinical history: Shortness of breath. Comparison: None. Technique: 2 views of the chest are submitted for review. Findings: The lungs are adequately expanded without evidence of infiltrate and/or effusion. The cardiac silhouette measures within normal. Pulmonary vascularity is unremarkable. Osseous structures are within normal limits for age. Impression: No plain film evidence for acute cardiopulmonary disease.
[2018-04-16 03:45] VITALS: BP 138/75
--- NOTE | 2018-04-16 05:41 | EKG REPORT ---
SEVERITY:- NORMAL ECG - SINUS RHYTHM : Confirmed by: Triston Vilchis MD 16-Apr-2018 05:40:26
== END 2018-04-16 02:02 | disposition home or self-care (01) ==
LOC: ER 23:29
DX: R07.9 Chest pain, unspecified (principal); F41.9 Anxiety disorder, unspecified; Z79.899 Other long term (current) drug therapy; I10 Essential (primary) hypertension
CPT/HCPCS: 71046; 93005; 93010; 99284

== ENCOUNTER → 2018-06-10 | Outpatient (CLI) | payer MEDICAID ==
--- NOTE | 2018-06-11 14:23 | EKG REPORT ---
SEVERITY:- NORMAL ECG - SINUS RHYTHM : Confirmed by: Jeovany Coates 11-Jun-2018 14:23:16
== END ==
LOC: OD 17:05
PROVIDERS: ATTEND Nurse Practitioner Family
DX: I10 Essential (primary) hypertension (principal)
CPT/HCPCS: 93005; 93010

== ENCOUNTER 2018-07-02 09:02 | Emergency (ER) | payer MEDICAID ==
[2018-07-02] MEDS ORDERED: KETOROLAC TROMETHAMINE 60 MG/2 ML SDV IM ONE (09:50)
--- NOTE | 2018-07-02 10:10 | ER Document Report ---
HPI - HPI Patient complains to provider of: mouth pain post wisdom teeth extraction Time Seen by Provider: 07/02/18 09:39 Onset: Other - wed Onset/Duration: Persistent Quality of pain: Achy, Throbbing Severity: Severe Pain Level: 5 Context: Patient Presents to the emergency department with complaints of oral pain. Patient reports she had her upper and lower right-sided wisdom teeth extracted on Wednesday. She was prescribed Motrin Percocet and an antibiotic. Taking her medications as prescribed. She reports it is still hurting. Patient does smoke but reports she has not been smoking or using a straw. Mother reports patient had a fever yesterday. Patient is not taking any type of antipyretic today and temperature is 98.1 with a heart rate of 67. Patient reports she is out of her Percocets. Mother reports they attempted to contact the dentist, Dr. Vaughan, without success. Associated Symptoms: Fever Exacerbated by: Denies Relieved by: Denies Similar symptoms previously: No Recently seen / treated by doctor: No Past Medical History - General Information source: Patient Last Menstrual Period: last month, denies - Social History Smoking Status: Current Every Day Smoker Cigarette use (# per day): Yes Frequency of alcohol use: None Drug Abuse: None Lives with: Family Family History: Reviewed & Not Pertinent Patient has suicidal ideation: No Patient has homicidal ideation: No - Past Medical History Cardiac Medical History: Reports: Hx Hypertension Renal/ Medical History: Denies: Hx Peritoneal Dialysis Psychiatric Medical History: Reports: Hx Attention Deficit Hyperactivity Disorder, Hx Depression Past Surgical History: Reports: Hx Section, Hx Tubal Ligation - Immunizations Immunizations up to date: Yes Vertical Provider Document - CONSTITUTIONAL Agree With Documented VS: Yes Exam Limitations: No Limitations General Appearance: WD/WN, No Apparent Distress - INFECTION CONTROL TRAVEL OUTSIDE OF THE [place] IN LAST 30 DAYS: No - HEENT HEENT: Atraumatic, Normocephalic Mouth Diagram: 1 - Upper and lower wisdom teeth extracted no erythema no discharge no swelling noted patient open mouth wide no ludwigs - NECK Neck: Normal Inspection, Supple. negative: Lymphadenopathy-Left, Lymphadenopathy-Right - RESPIRATORY Respiratory: No Respiratory Distress - CARDIOVASCULAR Cardiovascular: Regular Rate - MUSCULOSKELETAL/EXTREMETIES Musculoskeletal/Extremeties: MIMI SAMS - NEURO Level of Consciousness: Awake, Alert, Appropriate - DERM Integumentary: Warm, Dry Course - Re-evaluation Re-evalutation: 07/02/18 10:13 We discussed dry socket and the importance of taking her Motrin as prescribed. Will give patient a Toradol injection with Percocet and instructed her to follow -up with Dr. Vaughan on Wednesday. Dictation of this chart was performed using voice recognition software; therefore, there may be some unintended grammatical errors. - Vital Signs Vital signs: Temp Pulse Resp BP Pulse Ox 98.1 F 67 16 147/82 H 99 07/02/18 09:19 07/02/18 09:19 07/02/18 09:19 07/02/18 09:19 07/02/18 09:19 Discharge - Discharge Clinical Impression: pain post wisdom teeth extraction Condition: Stable Disposition: HOME, SELF-CARE Instructions: Oral Narcotic Medication ([facility]), Toradol Injection ([facility]) Additional Instructions: *You have been evaluated for dental pain post wisdom teeth extraction *Take medications as prescribed *Take motrin as prescribed *Follow up with Dr Vaughan Wednesday *Do not smoke, avoid using a straw, monitor your temperature *Return to ED for worsening condition, changes, needs Monitor your blood pressure. Your blood pressure was elevated today. This may be because you were anxious, in pain or because you need medication. It is important to follow up with your primary care provider for full evaluation. Prescriptions: Oxycodone HCl/Acetaminophen [Percocet 5-325 mg Tablet] 1 tab PO ASDIR PRN #15 tablet PRN Reason: Forms: Elevated Blood Pressure Referrals: MICHELINE MUÑIZ [facility] [Primary Care Provider] - Follow up in 3-5 days
[2018-07-02 10:34] VITALS: BP 150/94
== END 2018-07-02 10:36 | disposition home or self-care (01) ==
LOC: ER 09:02
DX: G89.18 Other acute postprocedural pain (principal); K13.79 Other lesions of oral mucosa; I10 Essential (primary) hypertension; Z98.51 Tubal ligation status
CPT/HCPCS: 99282; 96372; J1885

== ENCOUNTER 2019-01-08 15:30 | Emergency (ER) | payer OTHER, MEDICAID ==
[2019-01-08 15:40] VITALS: BP 147/88
[2019-01-08] MEDS ORDERED: SULFAMETHOXAZOLE/TRIMETHOPRIM 800-160 MG TABLET PO ONE (16:25)
[2019-01-08] MEDS ORDERED: OXYCODONE-ACETAMINOPHEN 5-325 MG TABLET PO ONE (16:25)
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
== END 2019-01-08 16:43 | disposition home or self-care (01) ==
LOC: ER 15:30
DX: S81.811D Laceration without foreign body, right lower leg, subsequent encounter (principal); V89.2XXD Person injured in unspecified motor-vehicle accident, traffic, subsequent encounter
CPT/HCPCS: 99282